=== PATIENT | female | born 2000 | race Caucasian/White ===

== ENCOUNTER → 2021-07-10 | Outpatient (REF) | payer OTHER ==
[2021-07-10 23:45] LABS: GC DNA AMPLIFICATION NEGATIVE (NEGATIVE)
== END ==
LOC: M LAB REF 19:12
PROVIDERS: ATTEND Physician Assistant
DX: R11.2 Nausea with vomiting, unspecified (principal); R30.0 Dysuria; Z20.828 Contact with and (suspected) exposure to other viral communicable diseases

== ENCOUNTER 2021-11-29 19:48 | Emergency (ER) | payer OTHER ==
[~2021-11-29] VITALS: Ht 157.5 cm; Wt 65.1 kg
[2021-11-29 19:50] VITALS: BP 137/80
[2021-11-29] MEDS ORDERED: ONDANSETRON 4MG 2ML VIAL IV ONE (20:20)
[2021-11-29] MEDS ORDERED: NS 1,000 ML IV ONE (20:20)
[2021-11-29] MEDS ORDERED: MORPHINE 4 MG/ML 1ML VIAL/SYRINGE IV ONE (20:20)
[2021-11-29] MEDS ORDERED: ISOVUE-370 76% 100ML VIAL As Ordered ONE (20:23)
[2021-11-29 21:37] LABS: BASO # 0.1 10^3/uL (0.0-0.2); BASO % 0.4 % (0.0-1.0); EOS % 0.2 % (0.0-3.0); HEMATOCRIT 41.8 % (36.0-47.0); HEMOGLOBIN 13.3 g/dl (12.0-15.5); LYMPH % 17.4 % (24.0-44.0); MEAN CORPUSCULAR HEMOGLOBIN 26.8 pg (27.0-33.0); MEAN CORPUSCULAR HGB CONC 31.8 g/dl (32.0-36.5); MEAN CORPUSCULAR VOLUME 84.3 fl (80.0-96.0); MONO # 1.2 10^3/uL (0.0-0.8); MONO % 7.1 % (2.0-8.0); NEUTROPHILS # 12.7 10^3/uL (1.5-8.5); NEUTROPHILS % 74.3 % (36.0-66.0); PLATELET COUNT, AUTOMATED 663 10^3/uL (150-450); RED BLOOD COUNT 4.96 10^6/uL (4.00-5.40); WHITE BLOOD COUNT 17.1 10^3/uL (4.0-10.0)
[2021-11-29 22:01] LABS: ALBUMIN 3.7 GM/DL (3.2-5.2); ALT/SGPT 13 U/L (12-78); BILIRUBIN,DIRECT 0.2 MG/DL (0.0-0.2); BILIRUBIN,TOTAL 0.6 MG/DL (0.2-1.0); BLOOD UREA NITROGEN 14 MG/DL (7-18); C REACTIVE PROTEIN QUANTITATIV 5.45 MG/DL (0.00-0.30); CALCIUM LEVEL 9.3 MG/DL (8.5-10.1); CARBON DIOXIDE LEVEL 24 MEQ/L (21-32); CHLORIDE LEVEL 104 MEQ/L (98-107); CREATININE FOR GFR 0.94 MG/DL (0.55-1.30); GLOMERULAR FILTRATION RATE > 60.0 (>60); GLUCOSE, FASTING 87 MG/DL (70-100); LIPASE 86 U/L (73-393); POTASSIUM SERUM 3.8 MEQ/L (3.5-5.1); SODIUM LEVEL 137 MEQ/L (136-145); TOTAL PROTEIN 7.9 GM/DL (6.4-8.2)
[2021-11-29 22:28] LABS: ERYTHROCYTE SEDIMENTATION RATE 46 mm/hr (0-20)
[2021-11-30] MEDS ORDERED: methylPREDNISolone 125MG 2ML VIAL IV ONE (00:10)
[2021-11-30] MEDS ORDERED: PRED10TA2 PO (00:24)
[2021-11-30] MEDS ORDERED: ONDA4TAB6 PO (00:24)
[2021-11-30] MEDS ORDERED: METR-265 PO (00:24)
== END 2021-11-30 00:33 | disposition home or self-care (01) ==
LOC: M ED 19:48
DX: K50.918 Crohn's disease, unspecified, with other complication (principal); F17.200 Nicotine dependence, unspecified, uncomplicated; N83.291 Other ovarian cyst, right side; Z88.8 Allergy status to other drugs, medicaments and biological substances
CPT/HCPCS: 74177; 80048; 80076; 81000; 81015; 83605; 83690; 84702; 85025; 85652; 86140; 87086; 96361; 96374; 96375; 99283; J2270; J2405; J2930; Q9967

== ENCOUNTER 2021-12-26 06:33 | Emergency (ER) | payer OTHER ==
[~2021-12-26] VITALS: Ht 157.5 cm; Wt 67.4 kg
[~2021-12-26 06:33] MED LIST: METR-265 PO; ONDA4TAB6 PO; PRED10TA2 PO
[2021-12-26] MEDS ORDERED: methylPREDNISolone 125MG 2ML VIAL IV ONE (07:35)
[2021-12-26] MEDS ORDERED: NS 1,000 ML IV ONE (07:35)
[2021-12-26] MEDS ORDERED: ONDANSETRON 4MG 2ML VIAL IV ONE (07:35)
[2021-12-26 08:36] LABS: BASO % 0.3 % (0.0-1.0); EOS # 0.1 10^3/uL (0.0-0.5); EOS % 0.5 % (0.0-3.0); HEMATOCRIT 36.9 % (36.0-47.0); HEMOGLOBIN 11.9 g/dl (12.0-15.5); LYMPH # 0.9 10^3/uL (1.5-5.0); MEAN CORPUSCULAR HEMOGLOBIN 27.4 pg (27.0-33.0); MEAN CORPUSCULAR HGB CONC 32.2 g/dl (32.0-36.5); MONO # 0.4 10^3/uL (0.0-0.8); NEUTROPHILS # 11.3 10^3/uL (1.5-8.5); NEUTROPHILS % 88.8 % (36.0-66.0); PLATELET COUNT, AUTOMATED 576 10^3/uL (150-450); RED BLOOD COUNT 4.34 10^6/uL (4.00-5.40); WHITE BLOOD COUNT 12.7 10^3/uL (4.0-10.0)
[2021-12-26 09:16] LABS: ALBUMIN 3.3 G/DL (3.2-5.2); ALT/SGPT 13 U/L (7.0-40); BILIRUBIN,DIRECT 0.1 MG/DL (<0.4); BILIRUBIN,TOTAL 0.3 MG/DL (0.3-1.2); BLOOD UREA NITROGEN 11 MG/DL (9-23); CALCIUM LEVEL 9.2 MG/DL (8.5-10.1); CARBON DIOXIDE LEVEL 21 MMOL/L (20-31); CHLORIDE LEVEL 104 MMOL/L (98-107); CREATININE FOR GFR 0.69 MG/DL (0.55-1.30); GLOMERULAR FILTRATION RATE > 60.0 (>60); GLUCOSE, FASTING 95 MG/DL (60-100); LIPASE 30 U/L (12-53); POTASSIUM SERUM 4.3 MMOL/L (3.5-5.1); SODIUM LEVEL 139 MMOL/L (136-145)
[2021-12-26 09:23] LABS: HCG, SERUM QUALITATIVE NEGATIVE (NEGATIVE)
[2021-12-26 09:33] VITALS: BP 127/67
[2021-12-26] MEDS ORDERED: ONDA4TAB6 PO (09:44)
[2021-12-26] MEDS ORDERED: DICY10CA13 PO (09:44)
== END 2021-12-26 09:59 | disposition home or self-care (01) ==
LOC: M ED 06:33
DX: R10.84 Generalized abdominal pain (principal); R11.2 Nausea with vomiting, unspecified; R19.7 Diarrhea, unspecified; F17.290 Nicotine dependence, other tobacco product, uncomplicated; R00.0 Tachycardia, unspecified; Z88.1 Allergy status to other antibiotic agents; Z88.6 Allergy status to analgesic agent; Z79.899 Other long term (current) drug therapy
CPT/HCPCS: 80048; 80076; 83690; 84703; 85025; 96361; 96374; 96375; 99284; J2405; J2930

== ENCOUNTER 2022-04-11 09:00 | Emergency (ER) | payer OTHER ==
[~2022-04-11] VITALS: Ht 157.5 cm; Wt 71.6 kg
[~2022-04-11 09:00] MED LIST changes: +DICY10CA13 PO
[2022-04-11] MEDS ORDERED: ONDANSETRON 4MG 2ML VIAL IV ONE (10:50)
[2022-04-11 10:55] LABS: BASO # 0.1 10^3/uL (0.0-0.2); BASO % 0.4 % (0.0-1.0); EOS # 0.1 10^3/uL (0.0-0.5); EOS % 0.6 % (0.0-3.0); HEMATOCRIT 42.8 % (36.0-47.0); HEMOGLOBIN 13.4 g/dl (12.0-15.5); LYMPH % 14.3 % (24.0-44.0); MEAN CORPUSCULAR HEMOGLOBIN 27.2 pg (27.0-33.0); MEAN CORPUSCULAR HGB CONC 31.3 g/dl (32.0-36.5); MONO # 0.9 10^3/uL (0.0-0.8); MONO % 6.3 % (2.0-8.0); NEUTROPHILS # 10.9 10^3/uL (1.5-8.5); PLATELET COUNT, AUTOMATED 514 10^3/uL (150-450); RED BLOOD COUNT 4.92 10^6/uL (4.00-5.40); WHITE BLOOD COUNT 13.9 10^3/uL (4.0-10.0)
[2022-04-11] MEDS ORDERED: ISOVUE-370 76% 100ML VIAL As Ordered ONE (10:56)
[2022-04-11 11:20] LABS: ALBUMIN 3.8 G/DL (3.2-5.2); BILIRUBIN,DIRECT 0.2 MG/DL (<0.4); BILIRUBIN,TOTAL 0.5 MG/DL (0.3-1.2)
[2022-04-11] MEDS: MORPHINE 2 MG/ML 1ML VIAL IV PRN ×2 (11:29→12:31)
[2022-04-11] MEDS ORDERED: PIPERACILLIN/TAZOBACTAM SOD 3.375 GM in D5W MINI-BAG PLUS 50 ML IV ONE (13:15)
[2022-04-11] MEDS ORDERED: methylPREDNISolone 125MG 2ML VIAL IV ONE (13:15)
[2022-04-11] MEDS ORDERED: NS 1,000 ML IV ONE (13:15)
[2022-04-11 15:06] LABS: RSV AMPLIFICATION NEGATIVE (NEGATIVE)
[2022-04-11] MEDS ORDERED: MORPHINE 2 MG/ML 1ML VIAL IV ONE (15:50)
[2022-04-11] MEDS ORDERED: NS 1,000 ML IV SCH (17:50)
[2022-04-11 18:46] VITALS: BP 132/69
== END 2022-04-11 18:58 | disposition short-term general hospital (02) ==
LOC: M ED 09:00
DX: K50.918 Crohn's disease, unspecified, with other complication (principal); R59.9 Enlarged lymph nodes, unspecified; N83.291 Other ovarian cyst, right side; K76.0 Fatty (change of) liver, not elsewhere classified; Z79.899 Other long term (current) drug therapy; Z88.8 Allergy status to other drugs, medicaments and biological substances; Z88.6 Allergy status to analgesic agent
CPT/HCPCS: 74177; 76705; 80047; 80076; 81001; 82150; 83605; 83690; 84702; 85025; 87088; 87186; 87631; 96365; 96366; 96375; 96376; 99285; J2270; J2405; J2543; J2930; Q9967

== ENCOUNTER 2022-06-07 11:16 | Outpatient (CLI) | payer OTHER ==
[~2022-06-07] VITALS: Ht 157.5 cm; Wt 72.0 kg
[2022-06-07 11:30] VITALS: BP 139/84
[2022-06-07] MEDS ORDERED: VEDOLIZUMAB 300 MG in NS 250 ML IV ONE (12:00)
[2022-06-07] MEDS ORDERED: diphenhydrAMINE 25MG CAP PO ONE (12:00)
[2022-06-07] MEDS ORDERED: ACETAMINOPHEN TAB 650MG DOSE (2X325MG) PO ONE (12:00)
[2022-06-07 13:30] VITALS: BP 138/88
== END 2022-06-07 13:30 | disposition home or self-care (01) ==
LOC: M INFU 11:16
PROVIDERS: ATTEND Internal Medicine Gastroenterology
DX: K50.90 Crohn's disease, unspecified, without complications (principal); Z88.8 Allergy status to other drugs, medicaments and biological substances; Z88.6 Allergy status to analgesic agent
CPT/HCPCS: 96365; J3380

== ENCOUNTER 2022-06-21 11:20 | Outpatient (CLI) | payer OTHER ==
[~2022-06-21] VITALS: Ht 157.5 cm; Wt 72.0 kg
[2022-06-21 11:20] VITALS: BP 160/88
[2022-06-21] MEDS ORDERED: diphenhydrAMINE 25MG CAP PO ONE (12:00)
[2022-06-21] MEDS ORDERED: VEDOLIZUMAB 300 MG in NS 250 ML IV ONE (12:00)
[2022-06-21] MEDS ORDERED: ACETAMINOPHEN TAB 650MG DOSE (2X325MG) PO ONE (12:00)
[2022-06-21 12:30] VITALS: BP 148/96
== END 2022-06-21 12:30 | disposition home or self-care (01) ==
LOC: M INFU 11:20
PROVIDERS: ATTEND Internal Medicine Gastroenterology
DX: K50.90 Crohn's disease, unspecified, without complications (principal); Z88.1 Allergy status to other antibiotic agents; Z88.6 Allergy status to analgesic agent; Z88.8 Allergy status to other drugs, medicaments and biological substances
CPT/HCPCS: 96365; J3380

== ENCOUNTER 2022-07-19 11:30 | Outpatient (CLI) | payer OTHER ==
[~2022-07-19] VITALS: Ht 157.5 cm; Wt 72.0 kg
[2022-07-19 11:30] VITALS: BP 161/90; O2SAT 100
[2022-07-19] MEDS ORDERED: ACETAMINOPHEN TAB 650MG DOSE (2X325MG) PO ONE (12:00)
[2022-07-19] MEDS ORDERED: VEDOLIZUMAB 300 MG in NS 250 ML IV ONE (12:00)
[2022-07-19] MEDS ORDERED: diphenhydrAMINE 25MG CAP PO ONE (12:00)
[2022-07-19 13:00] VITALS: BP 141/92; O2SAT 100
== END 2022-07-19 13:00 | disposition home or self-care (01) ==
LOC: M INFU 11:30
PROVIDERS: ATTEND Internal Medicine Gastroenterology
DX: K50.90 Crohn's disease, unspecified, without complications (principal); Z88.8 Allergy status to other drugs, medicaments and biological substances; Z88.6 Allergy status to analgesic agent
CPT/HCPCS: 96365; J3380

== ENCOUNTER 2022-08-25 18:52 | Inpatient (IN) | payer OTHER ==
[~2022-08-25] VITALS: Ht 157.5 cm; Wt 84.5 kg
[~2022-08-25 18:52] MED LIST changes: +DICY-61 PO; -DICY10CA13 PO
[2022-08-25] MEDS ORDERED: ACETAMINOPHEN 1000MG 100ML IV BAG IV ONE (19:55)
[2022-08-25 20:11] LABS: BASO # 0.1 10^3/uL (0.0-0.2); BASO % 0.9 % (0.0-1.0); EOS # 0.3 10^3/uL (0.0-0.5); EOS % 3.7 % (0.0-3.0); HEMATOCRIT 35.7 % (36.0-47.0); HEMOGLOBIN 11.2 g/dl (12.0-15.5); LYMPH # 3.2 10^3/uL (1.5-5.0); LYMPH % 34.5 % (24.0-44.0); MEAN CORPUSCULAR HEMOGLOBIN 26.7 pg (27.0-33.0); MEAN CORPUSCULAR HGB CONC 31.4 g/dl (32.0-36.5); MEAN CORPUSCULAR VOLUME 85.2 fl (80.0-96.0); MONO # 0.7 10^3/uL (0.0-0.8); NEUTROPHILS # 4.9 10^3/uL (1.5-8.5); NEUTROPHILS % 52.5 % (36.0-66.0); PLATELET COUNT, AUTOMATED 611 10^3/uL (150-450); RED BLOOD COUNT 4.19 10^6/uL (4.00-5.40); WHITE BLOOD COUNT 9.2 10^3/uL (4.0-10.0)
[2022-08-25] MEDS: GASTROGRAFIN SOLUTION 30ML PO SCH ×2 (20:26→20:27)
[2022-08-25 20:41] LABS: ALBUMIN 3.3 G/DL (3.2-5.2); BILIRUBIN,DIRECT 0.1 MG/DL (<0.4); BILIRUBIN,TOTAL 0.3 MG/DL (0.3-1.2); TOTAL PROTEIN 6.5 G/DL (5.7-8.2)
[2022-08-25] MEDS ORDERED: MORPHINE 2 MG/ML 1ML VIAL IV ONE (21:20)
[2022-08-25] MEDS ORDERED: ONDANSETRON 4MG 2ML VIAL IV ONE (21:40)
[2022-08-25] MEDS ORDERED: ISOVUE-370 76% 100ML VIAL As Ordered ONE (21:40)
[2022-08-25] MEDS ORDERED: BOOSTRIX VACCINE (TETANUS/DIPHTH/ACEL. PERTUSSIS) 0.5ML SYR IM ONE (22:00)
[2022-08-25] MEDS ORDERED: HYDROMORPHONE HCL 0.5 MG/ 0.5 ML SYRINGE IV PRN ×2 (22:50)
[2022-08-25] MEDS ORDERED: ONDANSETRON 4MG 2ML VIAL IV PRN (22:50)
[2022-08-25] MEDS ORDERED: ONDA4TAB6 PO (23:07)
[2022-08-25] MEDS ORDERED: LORA-674 PO (23:07)
[2022-08-25] MEDS ORDERED: DULO-34 PO (23:07)
[2022-08-25] MEDS ORDERED: ACET650T15 PO (23:07)
[2022-08-25] MEDS ORDERED: HOME MED LIST COMPLETE! XX SCH (23:10)
[2022-08-26] MEDS ORDERED: methylPREDNISolone 125MG 2ML VIAL IV ONE
[2022-08-26 00:59] VITALS: BP 160/109; TEMP 98.6; O2SAT 100
[2022-08-26 01:04] VITALS: TEMP 97.2
[2022-08-26] MEDS ORDERED: PROMETHAZINE 25MG/ML 1ML VIAL IV ONE (02:00)
[2022-08-26] MEDS: metroNIDAZOLE 500 MG in IV 1 EA IV SCH ×4 (02:14→23:49)
[2022-08-26] MEDS: LR 1,000 ML IV SCH ×4 (02:14→23:30)
[2022-08-26 02:20] VITALS: BP 130/74
[2022-08-26] MEDS: CIPROFLOXACIN 400 MG in IV 1 EA IV SCH ×2 (03:43→12:53)
[2022-08-26 04:59] VITALS: BP 143/96; TEMP 98.4; O2SAT 97
[2022-08-26 05:43] LABS: HEMATOCRIT 37.9 % (36.0-47.0); HEMOGLOBIN 11.9 g/dl (12.0-15.5); MEAN CORPUSCULAR HEMOGLOBIN 26.7 pg (27.0-33.0); MEAN CORPUSCULAR HGB CONC 31.4 g/dl (32.0-36.5); PLATELET COUNT, AUTOMATED 605 10^3/uL (150-450); RED BLOOD COUNT 4.46 10^6/uL (4.00-5.40); WHITE BLOOD COUNT 9.9 10^3/uL (4.0-10.0)
[2022-08-26 06:20] LABS: ERYTHROCYTE SEDIMENTATION RATE 67 mm/hr (0-20)
[2022-08-26] MEDS ORDERED: MORPHINE 2 MG/ML 1ML VIAL IV PRN ×2 (06:25)
[2022-08-26 07:02] LABS: INR 1.03; PROTHROMBIN TIME 13.7 SECONDS (12.5-14.5)
[2022-08-26 07:03] LABS: PARTIAL THROMBOPLASTIN TIME 34.9 SECONDS (24.8-34.2)
[2022-08-26] MEDS: ENOXAPARIN 40MG/0.4ML SYRINGE (J1650 PER 10MG) SC SCH (08:47)
[2022-08-26] MEDS: methylPREDNISolone 125MG 2ML VIAL IV SCH (12:53)
[2022-08-26 14:00] VITALS: BP 106/61; TEMP 97.7; O2SAT 97
[2022-08-26] MEDS: PANTOPRAZOLE 40MG VIAL IV SCH (20:57)
[2022-08-26 21:00] VITALS: BP 131/82; TEMP 98.5; O2SAT 99
[2022-08-26] MEDS ORDERED: ACETAMINOPHEN TAB 650MG DOSE (2X325MG) PO PRN (21:15)
[2022-08-26] MEDS ORDERED: FAMOTIDINE 20MG/2ML VIAL IVP ONE (21:15)
[2022-08-26] MEDS: diphenhydrAMINE 50MG/ML VIAL IV PRN (21:20)
[2022-08-26] MEDS ORDERED: LORazepam 2 MG/ML 1ML VIAL IV PRN (21:55)
[2022-08-26] MEDS ORDERED: TEMAZEPAM 7.5 MG CAP PO ONE (22:00)
[2022-08-27] MEDS: CIPROFLOXACIN 400 MG in IV 1 EA IV SCH ×2 (01:10→13:44)
[2022-08-27 05:57] LABS: HEMATOCRIT 31.6 % (36.0-47.0); HEMOGLOBIN 10.1 g/dl (12.0-15.5); MEAN CORPUSCULAR HEMOGLOBIN 27.1 pg (27.0-33.0); MEAN CORPUSCULAR VOLUME 84.7 fl (80.0-96.0); PLATELET COUNT, AUTOMATED 575 10^3/uL (150-450); RED BLOOD COUNT 3.73 10^6/uL (4.00-5.40); WHITE BLOOD COUNT 12.6 10^3/uL (4.0-10.0)
[2022-08-27 06:02] VITALS: BP 129/68; TEMP 97.9; O2SAT 98
[2022-08-27 06:16] LABS: ALBUMIN 2.9 G/DL (3.2-5.2); ALKALINE PHOSPHATASE 57 U/L (46-116); ALT/SGPT 12 U/L (7.0-40); AST/SGOT < 8 U/L (<34); BILIRUBIN,TOTAL 0.3 MG/DL (0.3-1.2); BLOOD UREA NITROGEN 11 MG/DL (9-23); CALCIUM LEVEL 8.7 MG/DL (8.5-10.1); CARBON DIOXIDE LEVEL 21 MMOL/L (20-31); CHLORIDE LEVEL 110 MMOL/L (98-107); CREATININE FOR GFR 0.76 MG/DL (0.55-1.30); GLOMERULAR FILTRATION RATE > 60.0 (>60); GLUCOSE, FASTING 87 MG/DL (60-100); POTASSIUM SERUM 4.4 MMOL/L (3.5-5.1); SODIUM LEVEL 141 MMOL/L (136-145); TOTAL PROTEIN 5.8 G/DL (5.7-8.2)
[2022-08-27] MEDS: ENOXAPARIN 40MG/0.4ML SYRINGE (J1650 PER 10MG) SC SCH (09:07)
[2022-08-27] MEDS: methylPREDNISolone 125MG 2ML VIAL IV SCH (09:07)
[2022-08-27] MEDS: metroNIDAZOLE 500 MG in IV 1 EA IV SCH ×3 (09:07→23:07)
[2022-08-27] MEDS: LR 1,000 ML IV SCH ×2 (09:08→17:44)
[2022-08-27] MEDS: diphenhydrAMINE 50MG/ML VIAL IV PRN ×3 (09:11→22:35)
[2022-08-27 14:00] VITALS: BP 142/97; TEMP 99; O2SAT 99
[2022-08-27] MEDS: PANTOPRAZOLE 40MG VIAL IV SCH (19:16)
[2022-08-27 20:42] VITALS: BP 157/96; TEMP 98.2; O2SAT 98
[2022-08-28] MEDS: CIPROFLOXACIN 400 MG in IV 1 EA IV SCH (00:40)
[2022-08-28] MEDS ORDERED: diphenhydrAMINE 25MG CAP PO ONE (00:50)
[2022-08-28] MEDS ORDERED: FAMOTIDINE 20MG/2ML VIAL IVP ONE (00:50)
[2022-08-28 05:11] VITALS: BP 120/71; TEMP 97.9; O2SAT 98
[2022-08-28] MEDS ORDERED: metroNIDAZOLE (FLAGYL) 500MG TABLET PO SCH (06:00)
[2022-08-28] MEDS ORDERED: CIPROFLOXACIN 500MG TABLET PO SCH (07:45)
[2022-08-28] MEDS ORDERED: predniSONE 20 MG TAB PO SCH (09:00)
[2022-08-28] MEDS ORDERED: PANTOPRAZOLE 40MG TAB (PROTONIX) PO SCH (09:00)
[2022-08-28] MEDS ORDERED: LORATADINE 10 MG TAB PO SCH (09:00)
[2022-08-28] MEDS ORDERED: AUGMENTIN 875 MG TAB PO SCH (09:00)
[2022-08-28] MEDS: ENOXAPARIN 40MG/0.4ML SYRINGE (J1650 PER 10MG) SC SCH (09:00)
[2022-08-28] MEDS ORDERED: AMOX875T2 PO (11:08)
[2022-08-28] MEDS ORDERED: PRED10TA2 PO (11:50)
[2022-08-28] MEDS ORDERED: MEDR4PAK PO (12:16)
[2022-08-28] MEDS ORDERED: DULoxetine 20MG CAP (CYMBALTA) PO ONE (13:30)
== END 2022-08-28 16:01 | disposition home or self-care (01) | DRG 387 ==
LOC: M ED 18:52 → M ED INP 22:48 → ENRESERV 23:51 → M MSPAV 08-26 00:55
PROVIDERS: ADMIT Internal Medicine; ATTEND Internal Medicine Nephrology
DX: K50.012 Crohn's disease of small intestine with intestinal obstruction (principal); F12.10 Cannabis abuse, uncomplicated; Z79.899 Other long term (current) drug therapy; Z88.1 Allergy status to other antibiotic agents; Z88.6 Allergy status to analgesic agent; Z88.8 Allergy status to other drugs, medicaments and biological substances; F32.A Depression, unspecified; E66.9 Obesity, unspecified

== ENCOUNTER 2022-09-06 13:22 | Outpatient (CLI) | payer OTHER ==
[~2022-09-06] VITALS: Ht 160 cm; Wt 82.1 kg
[~2022-09-06 13:22] MED LIST changes: +ACET650T15 PO; +AMOX875T2 PO; +DULO-34 PO; +LORA-674 PO; +MEDR4PAK PO
[2022-09-06 14:00] VITALS: BP 150/88; O2SAT 100
[2022-09-06] MEDS ORDERED: VEDOLIZUMAB 300 MG in NS 250 ML IV ONE (14:00)
[2022-09-06] MEDS ORDERED: diphenhydrAMINE 25MG CAP PO ONE (14:00)
[2022-09-06] MEDS ORDERED: ACETAMINOPHEN TAB 650MG DOSE (2X325MG) PO ONE (14:00)
[2022-09-06 16:10] VITALS: BP 132/80; O2SAT 100
== END 2022-09-06 16:15 ==
LOC: M INFU 13:22
PROVIDERS: ATTEND Internal Medicine Gastroenterology
DX: K50.90 Crohn's disease, unspecified, without complications (principal); Z88.1 Allergy status to other antibiotic agents; Z88.6 Allergy status to analgesic agent; Z88.8 Allergy status to other drugs, medicaments and biological substances; Z91.040 Latex allergy status
CPT/HCPCS: 96365; J3380

== ENCOUNTER 2022-10-04 11:40 | Outpatient (CLI) | payer OTHER ==
[~2022-10-04] VITALS: Ht 157.5 cm; Wt 83.9 kg
[2022-10-04 11:59] VITALS: BP 148/81; TEMP 98; O2SAT 100
[2022-10-04] MEDS ORDERED: VEDOLIZUMAB 300 MG in NS 250 ML IV ONE (12:00)
[2022-10-04] MEDS ORDERED: ACETAMINOPHEN TAB 650MG DOSE (2X325MG) PO ONE (12:00)
[2022-10-04] MEDS ORDERED: diphenhydrAMINE 25MG CAP PO ONE (12:00)
[2022-10-04 13:15] VITALS: BP 134/81; O2SAT 100
== END 2022-10-04 13:15 ==
LOC: M INFU 11:40
PROVIDERS: ATTEND Internal Medicine Gastroenterology
DX: K50.90 Crohn's disease, unspecified, without complications (principal); Z88.8 Allergy status to other drugs, medicaments and biological substances; Z88.1 Allergy status to other antibiotic agents; Z88.6 Allergy status to analgesic agent
CPT/HCPCS: 96365; J3380

== ENCOUNTER 2022-12-02 15:58 | Outpatient (CLI) | payer OTHER ==
[~2022-12-02] VITALS: Ht 160 cm; Wt 85.0 kg
[~2022-12-02 15:58] MED LIST changes: +LORA-1041 PO; -LORA-674 PO
[2022-12-02 16:05] VITALS: BP 166/78; O2SAT 100
[2022-12-02] MEDS ORDERED: VEDOLIZUMAB 300 MG in NS 250 ML IV ONE (16:30)
[2022-12-02] MEDS ORDERED: diphenhydrAMINE 25MG CAP PO ONE (16:30)
[2022-12-02] MEDS ORDERED: ACETAMINOPHEN TAB 650MG DOSE (2X325MG) PO ONE (16:30)
[2022-12-02 17:38] VITALS: BP 142/74; O2SAT 100
== END 2022-12-02 17:49 | disposition home or self-care (01) ==
LOC: M INFU 15:58
PROVIDERS: ATTEND Internal Medicine Gastroenterology
DX: K50.90 Crohn's disease, unspecified, without complications (principal); Z88.1 Allergy status to other antibiotic agents; Z88.6 Allergy status to analgesic agent; Z88.8 Allergy status to other drugs, medicaments and biological substances
CPT/HCPCS: 96365; J3380

== ENCOUNTER 2022-12-27 11:50 | Outpatient (CLI) | payer OTHER ==
[~2022-12-27] VITALS: Ht 160 cm; Wt 83.0 kg
[2022-12-27 11:50] VITALS: BP 134/86; TEMP 98.3; O2SAT 97
[2022-12-27] MEDS ORDERED: ACETAMINOPHEN TAB 650MG DOSE (2X325MG) PO ONE (12:00)
[2022-12-27] MEDS ORDERED: diphenhydrAMINE 25MG CAP PO ONE (12:00)
[2022-12-27] MEDS ORDERED: VEDOLIZUMAB 300 MG in NS 250 ML IV ONE (12:00)
[2022-12-27 13:51] VITALS: BP 131/79; TEMP 98.1; O2SAT 98
== END 2022-12-27 13:50 | disposition home or self-care (01) ==
LOC: M INFU 11:50
PROVIDERS: ATTEND Internal Medicine Gastroenterology
DX: K50.90 Crohn's disease, unspecified, without complications (principal); Z88.1 Allergy status to other antibiotic agents; Z88.8 Allergy status to other drugs, medicaments and biological substances; Z88.6 Allergy status to analgesic agent
CPT/HCPCS: 96365; J3380

== ENCOUNTER 2023-01-24 11:50 | Outpatient (CLI) | payer OTHER ==
[~2023-01-24] VITALS: Ht 157.5 cm; Wt 80.0 kg
[2023-01-24 11:50] VITALS: BP 129/66; O2SAT 100
[2023-01-24] MEDS ORDERED: ACETAMINOPHEN TAB 650MG DOSE (2X325MG) PO ONE (12:00)
[2023-01-24] MEDS ORDERED: VEDOLIZUMAB 300 MG in NS 250 ML IV ONE (12:00)
[2023-01-24] MEDS ORDERED: diphenhydrAMINE 25MG CAP PO ONE (12:00)
[2023-01-24 13:40] VITALS: BP 117/65; O2SAT 100
== END 2023-01-24 16:40 | disposition home or self-care (01) ==
LOC: M INFU 11:50
PROVIDERS: ATTEND Internal Medicine Gastroenterology
DX: K50.90 Crohn's disease, unspecified, without complications (principal); Z88.1 Allergy status to other antibiotic agents; Z88.6 Allergy status to analgesic agent; Z88.8 Allergy status to other drugs, medicaments and biological substances
CPT/HCPCS: 96365; J3380

== ENCOUNTER 2023-02-21 11:47 | Outpatient (CLI) | payer OTHER ==
[~2023-02-21] VITALS: Ht 157.5 cm; Wt 81.3 kg
[2023-02-21 11:50] VITALS: BP 143/70; O2SAT 100
[2023-02-21] MEDS ORDERED: diphenhydrAMINE 25MG CAP PO ONE (12:00)
[2023-02-21] MEDS ORDERED: ACETAMINOPHEN TAB 650MG DOSE (2X325MG) PO ONE (12:00)
[2023-02-21] MEDS ORDERED: VEDOLIZUMAB 300 MG in NS 250 ML IV ONE (12:00)
[2023-02-21 13:55] VITALS: BP 132/74; O2SAT 100
== END 2023-02-21 13:55 ==
LOC: M INFU 11:47
PROVIDERS: ATTEND Internal Medicine Gastroenterology
DX: K50.90 Crohn's disease, unspecified, without complications (principal); Z88.1 Allergy status to other antibiotic agents; Z88.6 Allergy status to analgesic agent; Z88.8 Allergy status to other drugs, medicaments and biological substances
CPT/HCPCS: 96365; J3380

== ENCOUNTER 2023-03-21 11:40 | Outpatient (CLI) | payer OTHER ==
[~2023-03-21] VITALS: Ht 157.5 cm; Wt 79.3 kg
[2023-03-21 11:40] VITALS: BP 145/87; O2SAT 100
[2023-03-21] MEDS: ACETAMINOPHEN TAB 650MG DOSE (2X325MG) PO ONE (11:49)
[2023-03-21] MEDS: diphenhydrAMINE 25MG CAP PO ONE (11:49)
[2023-03-21] MEDS: VEDOLIZUMAB 300 MG in NS 250 ML IV ONE (12:43)
[2023-03-21 13:25] VITALS: BP 136/80; O2SAT 100
== END 2023-03-21 13:30 ==
LOC: M INFU 11:40
PROVIDERS: ATTEND Internal Medicine Gastroenterology
DX: K50.90 Crohn's disease, unspecified, without complications (principal); Z88.1 Allergy status to other antibiotic agents; Z88.6 Allergy status to analgesic agent; Z88.8 Allergy status to other drugs, medicaments and biological substances
CPT/HCPCS: 96365; J3380

== ENCOUNTER 2023-04-18 11:50 | Outpatient (CLI) | payer OTHER ==
[~2023-04-18] VITALS: Ht 157.5 cm; Wt 77.3 kg
[2023-04-18 11:50] VITALS: BP_SYST 122; BP_SYST 138; BP_DIAS 80; BP_DIAS 86; TEMP 99; O2SAT 100
[~2023-04-18 11:50] MED LIST changes: +DULO1CAP4 PO; +ENTY1INJ IV; +EQL50TAB2 PO; +LAMO25TA4 PO; +LORA-930 PO; +OMEP-173 PO; +PRAZ1CAP PO; +PYRI50TA41 PO; +TRAZ-252 PO
[2023-04-18] MEDS: ACETAMINOPHEN TAB 650MG DOSE (2X325MG) PO ONE (12:40)
[2023-04-18] MEDS: diphenhydrAMINE 25MG CAP PO ONE (12:40)
[2023-04-18] MEDS: VEDOLIZUMAB 300 MG in NS 250 ML IV ONE (12:43)
[2023-04-18 13:20] VITALS: BP 124/87; O2SAT 100
== END 2023-04-18 13:50 | disposition home or self-care (01) ==
LOC: M INFU 11:50
PROVIDERS: ATTEND Internal Medicine Gastroenterology
DX: K50.90 Crohn's disease, unspecified, without complications (principal); Z88.8 Allergy status to other drugs, medicaments and biological substances; Z88.0 Allergy status to penicillin; Z88.1 Allergy status to other antibiotic agents; Z88.6 Allergy status to analgesic agent
CPT/HCPCS: 96365; J3380

== ENCOUNTER 2023-04-28 11:28 | Day surgery (SDC) | payer OTHER ==
[~2023-04-28] VITALS: Ht 157.5 cm; Wt 77.2 kg
[2023-04-28] MEDS: NS 1,000 ML IV ONE (11:55)
[2023-04-28] MEDS ORDERED: propofoL 200 MG/20 ML VIAL As Ordered ONE (12:26)
[2023-04-28] MEDS ORDERED: propofoL 500 MG/50 ML VIAL As Ordered ONE (12:27)
[2023-04-28] MEDS ORDERED: MIDAZOLAM INJ 2MG/2ML VIAL As Ordered ONE (13:01)
[2023-04-28 13:23] VITALS: TEMP 97.5
[2023-04-28 13:52] VITALS: BP 153/85; O2SAT 100
== END 2023-04-28 14:03 | disposition home or self-care (01) ==
LOC: M OPP 11:28
PROVIDERS: ATTEND Internal Medicine Gastroenterology
DX: K50.812 Crohn's disease of both small and large intestine with intestinal obstruction (principal); K52.89 Other specified noninfective gastroenteritis and colitis; F17.290 Nicotine dependence, other tobacco product, uncomplicated; Z79.1 Long term (current) use of non-steroidal anti-inflammatories (NSAID); Z79.899 Other long term (current) drug therapy; Z88.0 Allergy status to penicillin; Z88.1 Allergy status to other antibiotic agents; Z88.6 Allergy status to analgesic agent; Z88.7 Allergy status to serum and vaccine; Z91.040 Latex allergy status
CPT/HCPCS: 45380; 88305; J2250

== ENCOUNTER 2023-05-16 11:50 | Outpatient (CLI) | payer OTHER ==
[~2023-05-16] VITALS: Ht 157.5 cm; Wt 77.2 kg
[2023-05-16 11:50] VITALS: BP 156/100; O2SAT 99
[2023-05-16] MEDS: VEDOLIZUMAB 300 MG in NS 250 ML IV ONE (12:06)
[2023-05-16] MEDS: diphenhydrAMINE 25MG CAP PO ONE (12:12)
[2023-05-16] MEDS: ACETAMINOPHEN TAB 650MG DOSE (2X325MG) PO ONE (12:13)
[2023-05-16 12:40] VITALS: BP 138/83; O2SAT 100
== END 2023-05-16 12:44 ==
LOC: M INFU 11:50
PROVIDERS: ATTEND Internal Medicine Gastroenterology
DX: K50.919 Crohn's disease, unspecified, with unspecified complications (principal); Z88.0 Allergy status to penicillin; Z88.1 Allergy status to other antibiotic agents; Z88.6 Allergy status to analgesic agent; Z88.8 Allergy status to other drugs, medicaments and biological substances
CPT/HCPCS: 96365; J3380

== ENCOUNTER 2023-06-13 11:55 | Outpatient (CLI) | payer OTHER ==
[~2023-06-13] VITALS: Ht 154.9 cm; Wt 77.0 kg
[2023-06-13] MEDS: VEDOLIZUMAB 300 MG in NS 250 ML IV ONE (12:27)
[2023-06-13] MEDS: diphenhydrAMINE 25MG CAP PO ONE (12:27)
[2023-06-13] MEDS: ACETAMINOPHEN TAB 650MG DOSE (2X325MG) PO ONE (12:27)
[2023-06-13 13:05] VITALS: BP 141/74; O2SAT 94
[2023-06-13 15:05] VITALS: BP 150/97; O2SAT 100
== END 2023-06-13 13:09 ==
LOC: M INFU 11:55
PROVIDERS: ATTEND Internal Medicine Gastroenterology
DX: K50.919 Crohn's disease, unspecified, with unspecified complications (principal); Z88.0 Allergy status to penicillin; Z88.1 Allergy status to other antibiotic agents; Z88.6 Allergy status to analgesic agent; Z88.8 Allergy status to other drugs, medicaments and biological substances; Z91.040 Latex allergy status
CPT/HCPCS: 96365; J3380

== ENCOUNTER 2023-06-26 12:39 | Emergency (ER) | payer OTHER ==
[~2023-06-26] VITALS: Ht 157.5 cm; Wt 77.3 kg
[2023-06-26 12:51] VITALS: BP 138/92; TEMP 99.1; O2SAT 100
== END 2023-06-26 14:10 | disposition left against medical advice (07) ==
LOC: M ED 12:39
DX: Z53.21 Procedure and treatment not carried out due to patient leaving prior to being seen by health care provider (principal)

== ENCOUNTER 2023-07-11 13:30 | Outpatient (CLI) | payer OTHER ==
[~2023-07-11] VITALS: Ht 165.1 cm; Wt 75.6 kg
[2023-07-11 13:25] VITALS: BP 149/83; O2SAT 98
[2023-07-11] MEDS: VEDOLIZUMAB 300 MG in NS 250 ML IV ONE (13:44)
[2023-07-11] MEDS ORDERED: diphenhydrAMINE 25MG CAP PO ONE (14:00)
[2023-07-11] MEDS ORDERED: ACETAMINOPHEN TAB 650MG DOSE (2X325MG) PO ONE (14:00)
[2023-07-11 14:57] VITALS: BP 118/78; O2SAT 100
== END 2023-07-11 15:00 ==
LOC: M INFU 13:30
PROVIDERS: ATTEND Internal Medicine Gastroenterology
DX: K50.90 Crohn's disease, unspecified, without complications (principal); Z88.0 Allergy status to penicillin; Z88.1 Allergy status to other antibiotic agents; Z88.6 Allergy status to analgesic agent; Z88.8 Allergy status to other drugs, medicaments and biological substances; Z91.040 Latex allergy status
CPT/HCPCS: 96365; J3380

== ENCOUNTER 2023-07-25 10:06 | Emergency (ER) | payer OTHER ==
[~2023-07-25] VITALS: Ht 157.5 cm; Wt 70.9 kg
[~2023-07-25 10:06] MED LIST changes: +ONDA-282 PO; -ONDA4TAB6 PO
[2023-07-25] MEDS ORDERED: ONDA-282 SL (10:16)
[2023-07-25 11:34] LABS: BASO # 0.1 10^3/uL (0.0-0.2); BASO % 0.4 % (0.0-1.0); EOS # 0.1 10^3/uL (0.0-0.5); EOS % 0.4 % (0.0-3.0); HEMATOCRIT 44.4 % (36.0-47.0); LYMPH # 2.5 10^3/uL (1.5-5.0); LYMPH % 17.9 % (24.0-44.0); MEAN CORPUSCULAR HEMOGLOBIN 27.1 pg (27.0-33.0); MEAN CORPUSCULAR HGB CONC 31.5 g/dl (32.0-36.5); MEAN CORPUSCULAR VOLUME 85.9 fl (80.0-96.0); MONO % 7.2 % (2.0-8.0); NEUTROPHILS # 10.5 10^3/uL (1.5-8.5); NEUTROPHILS % 73.7 % (36.0-66.0); PLATELET COUNT, AUTOMATED 705 10^3/uL (150-450); RED BLOOD COUNT 5.17 10^6/uL (4.00-5.40); WHITE BLOOD COUNT 14.2 10^3/uL (4.0-10.0)
[2023-07-25 11:57] LABS: LIPASE 29 U/L (12-53)
[2023-07-25 11:59] LABS: ALBUMIN 3.8 G/DL (3.2-5.2); ALKALINE PHOSPHATASE 65 U/L (46-116); ALT/SGPT 20 U/L (7.0-40); AST/SGOT 11 U/L (<34); BILIRUBIN,DIRECT 0.2 MG/DL (<0.4); BILIRUBIN,TOTAL 0.6 MG/DL (0.3-1.2); TOTAL PROTEIN 6.9 G/DL (5.7-8.2)
[2023-07-25] MEDS ORDERED: ISOVUE-370 76% 100ML VIAL As Ordered ONE (12:03)
[2023-07-25] MEDS: NS 1,000 ML IV ONE (12:16)
[2023-07-25] MEDS: ONDANSETRON 4MG 2ML VIAL IV ONE (12:17)
[2023-07-25] MEDS: MORPHINE 2 MG/ML 1ML VIAL IV ONE ×3 (12:17→19:14)
[2023-07-25 13:08] LABS: BLOOD UREA NITROGEN 12 MG/DL (9-23); CALCIUM LEVEL 9.3 MG/DL (8.5-10.1); CARBON DIOXIDE LEVEL 20 MMOL/L (20-31); CHLORIDE LEVEL 105 MMOL/L (98-107); CREATININE FOR GFR 0.99 MG/DL (0.55-1.30); GLOMERULAR FILTRATION RATE > 60.0 (>60); GLUCOSE, FASTING 78 MG/DL (60-100); POTASSIUM SERUM 4.7 MMOL/L (3.5-5.1); SODIUM LEVEL 138 MMOL/L (136-145)
[2023-07-25] MEDS: NS 1,000 ML IV SCH (14:23)
[2023-07-25] MEDS: METOCLOPRAMIDE INJ 10MG/2ML VIAL IV ONE (14:23)
[2023-07-25] MEDS: methylPREDNISolone 40MG 1ML VIAL IV ONE (14:25)
[2023-07-25] MEDS ORDERED: MED REC IN PROGRESS XX SCH (18:45)
[2023-07-25] MEDS ORDERED: ONDANSETRON 4MG 2ML VIAL IV ONE (19:05)
[2023-07-25] MEDS ORDERED: SIME80CH6 PO (19:22)
[2023-07-25 19:25] VITALS: BP 129/82; TEMP 97.2; O2SAT 99
[2023-07-25] MEDS ORDERED: HOME MED LIST COMPLETE! XX SCH (19:30)
== END 2023-07-25 19:54 | disposition home or self-care (01) ==
LOC: M ED 10:06
DX: K50.012 Crohn's disease of small intestine with intestinal obstruction (principal); J45.909 Unspecified asthma, uncomplicated; Z87.442 Personal history of urinary calculi; F31.9 Bipolar disorder, unspecified; Z79.899 Other long term (current) drug therapy; Z88.0 Allergy status to penicillin; Z88.1 Allergy status to other antibiotic agents; Z88.6 Allergy status to analgesic agent; Z88.8 Allergy status to other drugs, medicaments and biological substances; Z91.040 Latex allergy status
CPT/HCPCS: 74177; 80048; 80076; 81001; 83605; 83690; 85025; 87040; 93005; 96374; 96375; 96376; 99285; J2405; J2765; J2919; Q9967

== ENCOUNTER 2023-08-08 13:32 | Outpatient (CLI) | payer OTHER ==
[~2023-08-08] VITALS: Ht 165.1 cm; Wt 75.6 kg
[~2023-08-08 13:32] MED LIST changes: +ONDA-282 SL; +SIME80CH6 PO
[2023-08-08 13:45] VITALS: BP 143/80; O2SAT 100
[2023-08-08] MEDS ORDERED: ACETAMINOPHEN TAB 650MG DOSE (2X325MG) PO ONE (14:00)
[2023-08-08] MEDS ORDERED: diphenhydrAMINE 25MG CAP PO ONE (14:00)
[2023-08-08] MEDS: VEDOLIZUMAB 300 MG in NS 250 ML IV ONE (14:20)
[2023-08-08 16:15] VITALS: BP 126/87; O2SAT 98
== END 2023-08-08 16:20 ==
LOC: M INFU 13:32
PROVIDERS: ATTEND Internal Medicine Gastroenterology
DX: K50.90 Crohn's disease, unspecified, without complications (principal); Z88.0 Allergy status to penicillin; Z88.1 Allergy status to other antibiotic agents; Z88.6 Allergy status to analgesic agent; Z88.8 Allergy status to other drugs, medicaments and biological substances; Z91.040 Latex allergy status
CPT/HCPCS: 96365; 96366; J3380

== ENCOUNTER 2023-09-05 13:30 | Outpatient (CLI) | payer OTHER ==
[2023-09-05] MEDS: ACETAMINOPHEN TAB 650MG DOSE (2X325MG) PO ONE (13:42)
[2023-09-05] MEDS: diphenhydrAMINE 25MG CAP PO ONE (13:43)
[2023-09-05] MEDS: VEDOLIZUMAB 300 MG in NS 250 ML IV ONE (14:21)
[2023-09-05 14:23] VITALS: BP 129/76; O2SAT 98
[2023-09-05 15:30] VITALS: BP 111/59; O2SAT 98
== END 2023-09-05 15:30 ==
LOC: M INFU 13:30
PROVIDERS: ATTEND Internal Medicine Gastroenterology
DX: K50.90 Crohn's disease, unspecified, without complications (principal); Z88.0 Allergy status to penicillin; Z88.1 Allergy status to other antibiotic agents; Z88.6 Allergy status to analgesic agent; Z88.8 Allergy status to other drugs, medicaments and biological substances; Z91.040 Latex allergy status
CPT/HCPCS: 96413; J3380

== ENCOUNTER 2023-09-12 13:45 | Outpatient (CLI) | payer OTHER ==
[~2023-09-12] VITALS: Ht 157.5 cm; Wt 70.5 kg
[~2023-09-12 13:45] MED LIST changes: +ALBUTEROL SULFATE 2.5MG/0.5ML INH NEB SOLN INH PRN; +EPINEPHrine INJ 1 MG/ML 1ML AMP IM PRN; +diphenhydrAMINE 50MG/ML VIAL IV PRN; +methylPREDNISolone 125MG 2ML VIAL IV PRN
[2023-09-12 13:50] VITALS: BP 135/84; O2SAT 100
[2023-09-12] MEDS ORDERED: NS 1,000 ML IV SCH (14:00)
[2023-09-12] MEDS: ACETAMINOPHEN TAB 650MG DOSE (2X325MG) PO ONE (14:09)
[2023-09-12] MEDS: FERRIC CARBOXYMALTOSE INJ 750 MG in NS 250 ML (>50kg) IV ONE (14:10)
[2023-09-12 15:25] VITALS: BP 131/78; O2SAT 99
== END 2023-09-12 15:25 | disposition home or self-care (01) ==
LOC: M INFU 13:45
PROVIDERS: ATTEND Internal Medicine
DX: D64.9 Anemia, unspecified (principal); Z88.0 Allergy status to penicillin; Z88.1 Allergy status to other antibiotic agents; Z88.6 Allergy status to analgesic agent; Z88.8 Allergy status to other drugs, medicaments and biological substances; Z91.040 Latex allergy status
CPT/HCPCS: 96365; J1439

== ENCOUNTER 2023-10-03 13:40 | Outpatient (CLI) | payer OTHER ==
[~2023-10-03] VITALS: Ht 157.5 cm; Wt 70.5 kg
[~2023-10-03 13:40] MED LIST changes: -ALBUTEROL SULFATE 2.5MG/0.5ML INH NEB SOLN INH PRN; -EPINEPHrine INJ 1 MG/ML 1ML AMP IM PRN; -diphenhydrAMINE 50MG/ML VIAL IV PRN; -methylPREDNISolone 125MG 2ML VIAL IV PRN
[2023-10-03 13:50] VITALS: BP 152/84; O2SAT 96
[2023-10-03] MEDS: diphenhydrAMINE 25MG CAP PO ONE (14:04)
[2023-10-03] MEDS: ACETAMINOPHEN TAB 650MG DOSE (2X325MG) PO ONE (14:05)
[2023-10-03] MEDS: VEDOLIZUMAB 300 MG in NS 250 ML IV ONE (14:34)
[2023-10-03 15:40] VITALS: BP 132/83; O2SAT 100
== END 2023-10-03 15:45 ==
LOC: M INFU 13:40
PROVIDERS: ATTEND Internal Medicine Gastroenterology
DX: K50.90 Crohn's disease, unspecified, without complications (principal); Z88.0 Allergy status to penicillin; Z88.1 Allergy status to other antibiotic agents; Z88.6 Allergy status to analgesic agent; Z88.8 Allergy status to other drugs, medicaments and biological substances; Z91.040 Latex allergy status
CPT/HCPCS: 96413; J3380

== ENCOUNTER 2023-10-31 13:35 | Outpatient (CLI) | payer OTHER ==
[~2023-10-31] VITALS: Ht 157.5 cm; Wt 70.5 kg
[2023-10-31 13:45] VITALS: BP 138/78; O2SAT 95
[2023-10-31] MEDS: diphenhydrAMINE 25MG CAP PO ONE (13:53)
[2023-10-31] MEDS: ACETAMINOPHEN TAB 650MG DOSE (2X325MG) PO ONE (13:53)
[2023-10-31] MEDS: VEDOLIZUMAB 300 MG in NS 250 ML IV ONE (14:12)
[2023-10-31 15:24] VITALS: BP 130/75; O2SAT 100
== END 2023-10-31 15:30 ==
LOC: M INFU 13:35
PROVIDERS: ATTEND Internal Medicine Gastroenterology
DX: K50.90 Crohn's disease, unspecified, without complications (principal); Z88.0 Allergy status to penicillin; Z88.1 Allergy status to other antibiotic agents; Z88.6 Allergy status to analgesic agent; Z88.8 Allergy status to other drugs, medicaments and biological substances; Z91.040 Latex allergy status
CPT/HCPCS: 96365; J3380

== ENCOUNTER 2023-11-28 13:40 | Outpatient (CLI) | payer OTHER ==
[~2023-11-28] VITALS: Ht 157.5 cm; Wt 70.4 kg
[2023-11-28 13:30] VITALS: BP 120/65; O2SAT 97
[2023-11-28] MEDS ORDERED: ACETAMINOPHEN 650 MG PO ONE (14:00)
[2023-11-28] MEDS ORDERED: diphenhydrAMINE 25MG CAP PO ONE (14:00)
[2023-11-28] MEDS: VEDOLIZUMAB 300 MG in LR 250 ML IV ONE (14:31)
[2023-11-28 15:35] VITALS: BP 115/67; O2SAT 99
== END 2023-11-28 15:35 ==
LOC: M INFU 13:40
PROVIDERS: ATTEND Internal Medicine Gastroenterology
DX: K50.90 Crohn's disease, unspecified, without complications (principal); Z88.0 Allergy status to penicillin; Z88.1 Allergy status to other antibiotic agents; Z88.6 Allergy status to analgesic agent; Z88.8 Allergy status to other drugs, medicaments and biological substances; Z91.040 Latex allergy status
CPT/HCPCS: 96413; J3380

== ENCOUNTER → 2023-12-02 | Outpatient (CLI) | payer OTHER ==
[~2023-12-02] MED LIST changes: +PROHANCE 279.3MG/ML 15ML VIAL As Ordered ONE
== END ==
LOC: M RAD 06:57
PROVIDERS: ATTEND Internal Medicine Gastroenterology
DX: D18.03 Hemangioma of intra-abdominal structures (principal)
CPT/HCPCS: 74183; A9576

== ENCOUNTER → 2023-12-16 | Outpatient (REF) | payer OTHER ==
[~2023-12-16] MED LIST changes: -PROHANCE 279.3MG/ML 15ML VIAL As Ordered ONE
== END ==
LOC: M LAB REF 08:34
PROVIDERS: ATTEND Internal Medicine Gastroenterology
DX: K50.812 Crohn's disease of both small and large intestine with intestinal obstruction (principal); R19.7 Diarrhea, unspecified

== ENCOUNTER 2023-12-26 13:55 | Outpatient (CLI) | payer OTHER ==
[~2023-12-26] VITALS: Ht 154.9 cm; Wt 72.7 kg
[2023-12-26 14:13] VITALS: BP 115/68; O2SAT 98
[2023-12-26] MEDS: VEDOLIZUMAB 300 MG in NS 250 ML IV ONE (14:37)
[2023-12-26] MEDS: diphenhydrAMINE 25MG CAP PO ONE (14:37)
[2023-12-26] MEDS: ACETAMINOPHEN 650 MG PO ONE (14:37)
[2023-12-26 15:41] VITALS: BP 117/61; O2SAT 93
== END 2023-12-26 15:50 ==
LOC: M INFU 13:55
PROVIDERS: ATTEND Internal Medicine Gastroenterology
DX: K50.90 Crohn's disease, unspecified, without complications (principal); Z88.0 Allergy status to penicillin; Z88.1 Allergy status to other antibiotic agents; Z88.6 Allergy status to analgesic agent; Z88.8 Allergy status to other drugs, medicaments and biological substances; Z91.040 Latex allergy status
CPT/HCPCS: 96413; J3380

== ENCOUNTER 2024-01-23 08:50 | Outpatient (CLI) | payer OTHER ==
[~2024-01-23] VITALS: Ht 157.5 cm; Wt 72.7 kg
[2024-01-23 08:59] VITALS: BP 138/96; O2SAT 98
[2024-01-23] MEDS: diphenhydrAMINE 25MG CAP PO ONE (09:05)
[2024-01-23] MEDS: ACETAMINOPHEN 650 MG PO ONE (09:05)
[2024-01-23] MEDS: VEDOLIZUMAB 300 MG in NS 250 ML IV ONE (09:19)
[2024-01-23 10:35] VITALS: BP 144/78; O2SAT 96
== END 2024-01-23 10:35 ==
LOC: M INFU 08:50
PROVIDERS: ATTEND Internal Medicine Gastroenterology
DX: K50.90 Crohn's disease, unspecified, without complications (principal); Z88.0 Allergy status to penicillin; Z88.1 Allergy status to other antibiotic agents; Z88.6 Allergy status to analgesic agent; Z88.8 Allergy status to other drugs, medicaments and biological substances; Z91.040 Latex allergy status
CPT/HCPCS: 96365; J3380

== ENCOUNTER 2024-02-12 21:52 | Emergency (ER) | payer OTHER ==
[~2024-02-12] VITALS: Ht 157.5 cm; Wt 72.7 kg
[2024-02-12 21:55] VITALS: TEMP 99
[2024-02-13 01:41] VITALS: BP 140/91; O2SAT 97
== END 2024-02-13 02:10 | disposition home or self-care (01) ==
LOC: M ED 21:52
DX: S93.402A Sprain of unspecified ligament of left ankle, initial encounter (principal); X50.1XXA Overexertion from prolonged static or awkward postures, initial encounter; Y92.009 Unspecified place in unspecified non-institutional (private) residence as the place of occurrence of the external cause; Y93.9 Activity, unspecified; Y99.9 Unspecified external cause status; Z79.899 Other long term (current) drug therapy; Z88.0 Allergy status to penicillin; Z88.1 Allergy status to other antibiotic agents; Z88.6 Allergy status to analgesic agent; Z88.8 Allergy status to other drugs, medicaments and biological substances; Z91.040 Latex allergy status

== ENCOUNTER 2024-02-20 10:49 | Outpatient (CLI) | payer OTHER ==
[~2024-02-20] VITALS: Ht 157.5 cm; Wt 72.7 kg
[2024-02-20 11:18] VITALS: BP 132/72; O2SAT 99
[2024-02-20] MEDS: VEDOLIZUMAB 300 MG in NS 250 ML IV ONE (11:32)
[2024-02-20] MEDS: ACETAMINOPHEN 650 MG PO ONE (11:33)
[2024-02-20] MEDS: diphenhydrAMINE 25MG CAP PO ONE (11:33)
[2024-02-20 12:50] VITALS: BP 131/78; O2SAT 100
== END 2024-02-20 12:50 ==
LOC: M INFU 10:49
PROVIDERS: ATTEND Internal Medicine Gastroenterology
DX: K50.90 Crohn's disease, unspecified, without complications (principal); Z88.0 Allergy status to penicillin; Z88.1 Allergy status to other antibiotic agents; Z88.6 Allergy status to analgesic agent; Z88.8 Allergy status to other drugs, medicaments and biological substances; Z91.040 Latex allergy status
CPT/HCPCS: 96365; J3380

== ENCOUNTER 2024-03-19 10:10 | Outpatient (CLI) | payer OTHER ==
[~2024-03-19] VITALS: Ht 157.5 cm; Wt 73.0 kg
[2024-03-19 11:00] VITALS: BP 147/74; O2SAT 98
[2024-03-19] MEDS: diphenhydrAMINE 25MG CAP PO ONE (11:10)
[2024-03-19] MEDS: ACETAMINOPHEN 650 MG PO ONE (11:10)
[2024-03-19] MEDS: VEDOLIZUMAB 300 MG in NS 250 ML IV ONE (11:29)
[2024-03-19 12:35] VITALS: BP 156/98; O2SAT 100
== END 2024-03-19 12:45 ==
LOC: M INFU 10:10
PROVIDERS: ATTEND Internal Medicine Gastroenterology
DX: K50.90 Crohn's disease, unspecified, without complications (principal); Z88.8 Allergy status to other drugs, medicaments and biological substances; Z88.0 Allergy status to penicillin; Z88.1 Allergy status to other antibiotic agents; Z88.6 Allergy status to analgesic agent; Z91.040 Latex allergy status
CPT/HCPCS: 96413; J3380

== ENCOUNTER 2024-04-16 10:40 | Outpatient (CLI) | payer OTHER ==
[~2024-04-16] VITALS: Ht 157.5 cm; Wt 72.6 kg
[2024-04-16 10:40] VITALS: BP 118/61; O2SAT 97
[2024-04-16] MEDS ORDERED: diphenhydrAMINE 25MG CAP PO ONE (11:00)
[2024-04-16] MEDS ORDERED: ACETAMINOPHEN 650 MG PO ONE (11:00)
[2024-04-16] MEDS: VEDOLIZUMAB 300 MG in NS 250 ML IV ONE (11:25)
[2024-04-16 12:20] VITALS: BP 104/53; O2SAT 100
== END 2024-04-16 12:25 ==
LOC: M INFU 10:40
PROVIDERS: ATTEND Internal Medicine Gastroenterology
DX: K50.919 Crohn's disease, unspecified, with unspecified complications (principal); Z88.8 Allergy status to other drugs, medicaments and biological substances; Z88.0 Allergy status to penicillin; Z88.1 Allergy status to other antibiotic agents; Z88.6 Allergy status to analgesic agent; Z91.040 Latex allergy status
CPT/HCPCS: 96413; J3380

== ENCOUNTER 2024-05-14 11:05 | Outpatient (CLI) | payer OTHER ==
[~2024-05-14] VITALS: Ht 157.5 cm; Wt 72.7 kg
[2024-05-14 11:00] VITALS: BP 111/69; O2SAT 98
[~2024-05-14 11:05] MED LIST changes: +ALBUTEROL SULFATE 2.5MG/0.5ML INH CONCENTRATE NEB SOLN INH PRN; +EPINEPHrine INJ 1 MG/ML 1ML AMP IM PRN; +NS (Normal Saline) 0.9% 1,000 ML IV SCH; +diphenhydrAMINE 50MG/ML VIAL IV PRN; +methylPREDNISolone 125MG 2ML VIAL IV PRN
[2024-05-14] MEDS: VEDOLIZUMAB 300 MG in NS 250 ML IV ONE (11:37)
[2024-05-14 12:44] VITALS: BP 125/68; O2SAT 98
== END 2024-05-14 12:50 ==
LOC: M INFU 11:05
PROVIDERS: ATTEND Internal Medicine Gastroenterology
DX: K50.90 Crohn's disease, unspecified, without complications (principal); Z88.0 Allergy status to penicillin; Z88.1 Allergy status to other antibiotic agents; Z88.6 Allergy status to analgesic agent; Z91.040 Latex allergy status
CPT/HCPCS: 96365; J3380

== ENCOUNTER 2024-06-11 10:00 | Outpatient (CLI) | payer OTHER ==
[~2024-06-11] VITALS: Ht 157.5 cm; Wt 72.7 kg
[~2024-06-11 10:00] MED LIST changes: -NS (Normal Saline) 0.9% 1,000 ML IV SCH
[2024-06-11 10:50] VITALS: BP 134/82; O2SAT 97
[2024-06-11] MEDS: VEDOLIZUMAB 300 MG in NS 250 ML IV ONE (11:32)
[2024-06-11 12:45] VITALS: BP 102/55; O2SAT 98
== END 2024-06-11 12:45 | disposition home or self-care (01) ==
LOC: M INFU 10:00
PROVIDERS: ATTEND Internal Medicine Gastroenterology
DX: K50.812 Crohn's disease of both small and large intestine with intestinal obstruction (principal); Z88.0 Allergy status to penicillin; Z88.1 Allergy status to other antibiotic agents; Z88.6 Allergy status to analgesic agent; Z88.8 Allergy status to other drugs, medicaments and biological substances; Z91.040 Latex allergy status
CPT/HCPCS: 96413; J3380

== ENCOUNTER 2024-06-14 10:31 | Inpatient (IN) | payer OTHER ==
[~2024-06-14] VITALS: Ht 157.5 cm; Wt 72.3 kg
[~2024-06-14 10:31] MED LIST changes: -ALBUTEROL SULFATE 2.5MG/0.5ML INH CONCENTRATE NEB SOLN INH PRN; -EPINEPHrine INJ 1 MG/ML 1ML AMP IM PRN; -diphenhydrAMINE 50MG/ML VIAL IV PRN; -methylPREDNISolone 125MG 2ML VIAL IV PRN
[2024-06-14 11:09] LABS: BASO # 0.1 10^3/uL (0.0-0.2); BASO % 0.4 % (0.0-1.0); EOS # 0.1 10^3/uL (0.0-0.5); EOS % 0.4 % (0.0-3.0); HEMATOCRIT 39.7 % (36.0-47.0); HEMOGLOBIN 13.6 g/dl (12.0-15.5); LYMPH % 16.5 % (24.0-44.0); MEAN CORPUSCULAR HEMOGLOBIN 30.4 pg (27.0-33.0); MEAN CORPUSCULAR HGB CONC 34.3 g/dl (32.0-36.5); MEAN CORPUSCULAR VOLUME 88.8 fl (80.0-96.0); MONO # 0.9 10^3/uL (0.0-0.8); MONO % 5.2 % (2.0-8.0); NEUTROPHILS # 13.8 10^3/uL (1.5-8.5); NEUTROPHILS % 77.1 % (36.0-66.0); PLATELET COUNT, AUTOMATED 664 10^3/uL (150-450); RED BLOOD COUNT 4.47 10^6/uL (4.00-5.40)
[2024-06-14 11:33] LABS: HCG, SERUM QUALITATIVE NEGATIVE (NEGATIVE); LIPASE 26 U/L (12-53)
[2024-06-14 11:35] LABS: ALBUMIN 3.8 G/DL (3.2-5.2); ALKALINE PHOSPHATASE 78 U/L (35-104); ALT/SGPT 17 U/L (7.0-40); AST/SGOT 21 U/L (<34); BILIRUBIN,DIRECT 0.1 MG/DL (<0.4); BILIRUBIN,TOTAL 0.4 MG/DL (0.3-1.2); TOTAL PROTEIN 7.1 G/DL (5.7-8.2)
[2024-06-14] MEDS: ONDANSETRON 4MG 2ML VIAL IV ONE (11:36)
[2024-06-14] MEDS: fentaNYL 100 MCG/2 ML INJECTION IV ONE (11:36)
[2024-06-14 12:25] LABS: BLOOD UREA NITROGEN 12 MG/DL (9-23); CALCIUM LEVEL 9.9 MG/DL (8.5-10.1); CARBON DIOXIDE LEVEL 21 MMOL/L (20-31); CHLORIDE LEVEL 107 MMOL/L (98-107); CREATININE FOR GFR 0.86 MG/DL (0.55-1.30); GLOMERULAR FILTRATION RATE > 90.0 (>60); GLUCOSE, FASTING 120 MG/DL (60-100); POTASSIUM SERUM 4.2 MMOL/L (3.5-5.1); SODIUM LEVEL 141 MMOL/L (136-145)
[2024-06-14] MEDS: METOCLOPRAMIDE INJ 10MG/2ML VIAL IV ONE (12:45)
[2024-06-14] MEDS: fentaNYL 100 MCG/2 ML INJECTION IV PRN (13:10)
[2024-06-14] MEDS: GASTROGRAFIN SOLUTION 30ML PO SCH (14:00)
[2024-06-14] MEDS ORDERED: ISOVUE-370 76% 100ML VIAL As Ordered ONE (14:55)
[2024-06-14] MEDS: dexAMETHasone 20MG/5ML VIAL IV ONE (17:10)
[2024-06-14] MEDS ORDERED: GLUCAGON INJ 1MG VIAL SC PRN (17:50)
[2024-06-14] MEDS ORDERED: GLUCOSE 4 GM CHEW PO PRN (17:50)
[2024-06-14] MEDS ORDERED: DEXTROSE 50% 50ML SYRINGE IV PRN (17:50)
[2024-06-14] MEDS: NS (Normal Saline) 0.9% 1,000 ML IV SCH (18:13)
[2024-06-14 18:25] VITALS: BP 118/83; TEMP 99.5; O2SAT 97
[2024-06-14] MEDS ORDERED: MORPHINE 2 MG/ML 1ML VIAL IV PRN (18:45)
[2024-06-14] MEDS ORDERED: MORPHINE 4 MG/ML 1ML VIAL IV PRN (18:45)
[2024-06-14] MEDS ORDERED: ONDANSETRON 4MG 2ML VIAL IV PRN (18:45)
[2024-06-14 20:04] VITALS: BP 113/69; TEMP 98.6; O2SAT 95
[2024-06-14] MEDS ORDERED: OMEP40CA5 PO (22:07)
[2024-06-14] MEDS ORDERED: HOME MED LIST COMPLETE! XX SCH (22:10)
[2024-06-14] MEDS: ACETAMINOPHEN *IV* 1,000 MG in IV 1 EA IV ONE (22:21)
[2024-06-15 05:00] LABS: BASO % 0.1 % (0.0-1.0); HEMATOCRIT 35.1 % (36.0-47.0); LYMPH # 2.2 10^3/uL (1.5-5.0); LYMPH % 19.5 % (24.0-44.0); MEAN CORPUSCULAR HEMOGLOBIN 29.9 pg (27.0-33.0); MEAN CORPUSCULAR HGB CONC 32.8 g/dl (32.0-36.5); MEAN CORPUSCULAR VOLUME 91.2 fl (80.0-96.0); MONO # 0.4 10^3/uL (0.0-0.8); MONO % 3.3 % (2.0-8.0); NEUTROPHILS # 8.7 10^3/uL (1.5-8.5); NEUTROPHILS % 76.7 % (36.0-66.0); RED BLOOD COUNT 3.85 10^6/uL (4.00-5.40); WHITE BLOOD COUNT 11.3 10^3/uL (4.0-10.0)
[2024-06-15 05:02] LABS: HEMOGLOBIN 11.5 g/dl (12.0-15.5); PLATELET COUNT, AUTOMATED 524 10^3/uL (150-450)
[2024-06-15 05:05] LABS: BLOOD UREA NITROGEN 13 MG/DL (9-23); CALCIUM LEVEL 8.3 MG/DL (8.5-10.1); CARBON DIOXIDE LEVEL 20 MMOL/L (20-31); CHLORIDE LEVEL 113 MMOL/L (98-107); CREATININE FOR GFR 0.71 MG/DL (0.55-1.30); GLOMERULAR FILTRATION RATE > 90.0 (>60); GLUCOSE, FASTING 109 MG/DL (60-100); MAGNESIUM LEVEL 2.2 MG/DL (1.8-2.4); POTASSIUM SERUM 4.9 MMOL/L (3.5-5.1); SODIUM LEVEL 142 MMOL/L (136-145)
[2024-06-15] MEDS: methylPREDNISolone 40MG 1ML VIAL IV SCH (06:49)
[2024-06-15 07:35] VITALS: BP 111/63; TEMP 97.9; O2SAT 98
[2024-06-15] MEDS: PANTOPRAZOLE 40MG VIAL IV SCH (08:55)
[2024-06-15] MEDS: ENOXAPARIN 40MG/0.4ML SYRINGE (J1650 PER 10MG) SC SCH (08:56)
[2024-06-15 11:50] VITALS: BP 137/66; TEMP 98.4; O2SAT 99
[2024-06-15] MEDS: ACETAMINOPHEN 325 MG TAB PO PRN (11:54)
[2024-06-15 15:43] VITALS: BP 118/66; TEMP 97.4; O2SAT 96
[2024-06-15 20:16] VITALS: BP 129/78; TEMP 98.7; O2SAT 99
[2024-06-16 00:14] VITALS: BP 112/60; TEMP 97.9; O2SAT 97
[2024-06-16 03:53] VITALS: BP 91/51; TEMP 98; O2SAT 96
[2024-06-16 07:46] VITALS: BP 105/62; TEMP 98; O2SAT 98
[2024-06-16] MEDS ORDERED: PRED20TA PO (11:10)
== END 2024-06-16 13:04 | disposition home or self-care (01) | DRG 387 ==
LOC: M ED 10:31 → EDBD 10:31 → M ED INP 17:43 → M PCU 18:25
PROVIDERS: ADMIT Student in an Organized Health Care Education/Training Program; ATTEND Student in an Organized Health Care Education/Training Program
DX: K50.912 Crohn's disease, unspecified, with intestinal obstruction (principal); K21.9 Gastro-esophageal reflux disease without esophagitis; M19.90 Unspecified osteoarthritis, unspecified site; F32.A Depression, unspecified; F41.9 Anxiety disorder, unspecified; Z83.3 Family history of diabetes mellitus; R00.0 Tachycardia, unspecified; Z79.52 Long term (current) use of systemic steroids; Z79.899 Other long term (current) drug therapy; Z88.0 Allergy status to penicillin; Z88.1 Allergy status to other antibiotic agents; Z88.6 Allergy status to analgesic agent; Z88.8 Allergy status to other drugs, medicaments and biological substances; Z91.040 Latex allergy status

== ENCOUNTER 2024-09-03 11:26 | Outpatient (CLI) | payer OTHER ==
[~2024-09-03] VITALS: Ht 157.5 cm; Wt 73.0 kg
[~2024-09-03 11:26] MED LIST changes: +ACET-1515 PO; -ACET650T15 PO; +ALBUTEROL SULFATE 2.5 MG/0.5 ML INH CONCENTRATE NEB SOLN INH PRN; +EPINEPHrine INJ 1 MG/ML 1ML AMP IM PRN; -EQL50TAB2 PO; +LAMO-18 PO; -LAMO25TA4 PO; +NS (Normal Saline) 0.9% 1,000 ML IV SCH; +OMEP40CA5 PO; +PRED20TA PO; +VITA1TAB82 PO; +diphenhydrAMINE 50 MG/ML VIAL IV PRN
[2024-09-03] MEDS: VEDOLIZUMAB 300 MG in NS 250 ML IV ONE (12:27)
[2024-09-03 12:34] VITALS: BP 149/82; O2SAT 99
[2024-09-03 13:34] VITALS: BP 128/78; O2SAT 99
== END 2024-09-03 13:30 ==
LOC: M INFU 11:26
PROVIDERS: ATTEND Internal Medicine Gastroenterology
DX: K50.00 Crohn's disease of small intestine without complications (principal); Z88.0 Allergy status to penicillin; Z88.1 Allergy status to other antibiotic agents; Z88.6 Allergy status to analgesic agent; Z88.8 Allergy status to other drugs, medicaments and biological substances; Z91.040 Latex allergy status
CPT/HCPCS: 96413; J3380

== ENCOUNTER 2024-10-15 12:40 | Outpatient (CLI) | payer OTHER ==
[~2024-10-15] VITALS: Ht 157.5 cm; Wt 73.3 kg
[2024-10-15 12:45] VITALS: BP 144/70; O2SAT 98
[2024-10-15] MEDS: VEDOLIZUMAB 300 MG in NS 250 ML IV ONE (13:19)
== END 2024-10-15 14:30 ==
LOC: M INFU 12:40
PROVIDERS: ATTEND Internal Medicine Gastroenterology
DX: K50.012 Crohn's disease of small intestine with intestinal obstruction (principal); Z88.0 Allergy status to penicillin; Z88.1 Allergy status to other antibiotic agents; Z88.8 Allergy status to other drugs, medicaments and biological substances; Z88.6 Allergy status to analgesic agent; Z91.040 Latex allergy status
CPT/HCPCS: 96413; J3380

== ENCOUNTER 2024-11-26 11:53 | Outpatient (CLI) | payer OTHER ==
[~2024-11-26] VITALS: Ht 157.5 cm; Wt 75.9 kg
[2024-11-26 12:00] VITALS: BP 116/69; O2SAT 98
[2024-11-26] MEDS: VEDOLIZUMAB 300 MG in NS 250 ML IV ONE (13:31)
[2024-11-26 14:32] VITALS: BP 111/57; O2SAT 97
== END 2024-11-26 14:34 | disposition home or self-care (01) ==
LOC: M INFU 11:53
PROVIDERS: ATTEND Internal Medicine Gastroenterology
DX: K50.00 Crohn's disease of small intestine without complications (principal); Z88.0 Allergy status to penicillin; Z88.1 Allergy status to other antibiotic agents; Z88.8 Allergy status to other drugs, medicaments and biological substances; Z88.6 Allergy status to analgesic agent; Z91.040 Latex allergy status
CPT/HCPCS: 96413; J3380

== ENCOUNTER 2025-01-10 12:15 | Outpatient (CLI) | payer OTHER ==
[~2025-01-10] VITALS: Ht 157.5 cm; Wt 79.0 kg
[2025-01-10 12:15] VITALS: BP 126/71; O2SAT 97
[2025-01-10] MEDS: VEDOLIZUMAB 300 MG in NS 250 ML IV ONE (12:51)
[2025-01-10 13:25] VITALS: BP 130/73; O2SAT 100
== END 2025-01-10 13:28 | disposition home or self-care (01) ==
LOC: M INFU 12:15
PROVIDERS: ATTEND Internal Medicine Gastroenterology
DX: K50.00 Crohn's disease of small intestine without complications (principal); Z88.0 Allergy status to penicillin; Z88.1 Allergy status to other antibiotic agents; Z88.6 Allergy status to analgesic agent; Z88.8 Allergy status to other drugs, medicaments and biological substances; Z91.040 Latex allergy status
CPT/HCPCS: 96413; J3380